=== PATIENT | female | born 1935 | race Hispanic/Latino ===

== ENCOUNTER → 2019-05-11 | Day surgery (SDC) | payer MEDICARE ==
[2019-05-09 10:29] LABS: BASOPHILS % 0.6 % (0.0-1.0); EOSINOPHILS # (AUTO) 0.2 (0.0-0.4); EOSINOPHILS % 3.3 % (0.0-6.0); HEMATOCRIT 30.4 % (34.2-44.1); HEMOGLOBIN 9.4 g/dL (12.0-16.0); LYMPHOCYTES # (AUTO) 1.7 (1.0-3.2); LYMPHOCYTES % 25.3 % (18.0-39.1); MEAN CORPUSCULAR HEMOGLOBIN 28.8 pg (28-32); MEAN CORPUSCULAR HGB CONC 30.9 g/dL (31-35); MEAN CORPUSCULAR VOLUME 93.3 fL (81-99); MONOCYTES # (AUTO) 0.5 (0.2-0.8); MONOCYTES % 6.7 % (4.4-11.3); NEUTROPHILS # (AUTO) 4.3 (2.1-6.9); NEUTROPHILS % 63.5 % (38.7-80.0); PLATELET COUNT 492 x10e3/uL (140-360); RED BLOOD COUNT 3.26 x10e6/uL (3.6-5.1); RED CELL DISTRIBUTION WIDTH 15.3 % (11.7-14.4)
[~2019-05-11] MED LIST: ALENDRONATE SOD70 MG PO; AMIODARONE HCL200 MG PO; FENTANYL CITRATE/PF 100MCG/2 ML INJ ONE; FUROSEMIDE40 MG PO; LEVOTHYROXINE112 MCG PO; MECLIZINE HCL12.5 MG PO; METOPROLOL PO; PROPOFOL IV EMULSION 10 MG/ML 50 ML VIAL ONE; SIMVASTATIN20 MG PO; VASOTEC5 MG PO; VITAMIN D22000 UNIT PO; WARFARIN SODIUM3 MG PO
--- OUTSIDE RECORDS SUMMARY | 2019-05-11 05:35 | XMS REPORT ---
Author Author [facility] Address Unknown Phone Unavailable Care Team Providers Care Sharepoint Administrator Name Role Phone Unavailable Unavailable Payers Payer Name Policy Type Policy Number Effective Date Expiration Date Problems This patient has no known problems. Allergies, Adverse Reactions, Alerts Allergy Name Allergy Type Status Severity Reaction(s) Onset Date Inactive Date Treating Clinician Comments No Known Allergies DA Active U 2018-03-02 00:00:00 No Known Allergies DA Active U 2010-07-08 00:00:00 Medications This patient has no known medications. Results Test Description Test Time Test Comments Text Results Atomic Results Result Comments - XR CHEST 2 V 2019-04-29 15:30:00 FAX: Javi Hamm MD [phone] [place]: St: REG FAX: Aida Card DO Name: AKASH GREENWOODELA [facility] : 1935 Age/S: 84/F [address] [place] [address] Blvd Unit #: [id number] Loc: [address] [address] Phys: Aida Card DO Acct: [id number] Dis Date: Status: REG ER PHONE #: [phone] Exam Date: 04/29/2019 1445 FAX #: [phone] Reason: evaluate questionable right sided infiltrate EXAMS: CPT CODE: [id number] XR CHEST 2 V 17328 PROCEDURE: Chest Radiograph. Clinical Indication: Pulmonary infiltrate, left lower quadrant pain. Comparison: Chest radiograph 03/02/2018. FINDINGS: The chest shows minimal bilateral interstitial infiltrate/edema most pronounced in the midlung zones and lower lobes. No consolidation. The cardiac silhouette is slightly enlarged and prosthetic cardiac valves are noted. The patient has had prior midline sternotomy. 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 IMPRESSION: 1. Minimal bilateral interstitial infiltrate/edema. SL: OCO-H Electronically S igned by Berny Milian on 04/29/2019 at 1530 Reported and signed by: Dony Milian M.D. CC: Javi Laurent MD; Aida Card DO Technologist: RT Allison(Mary) Trnsirisha Date/Time/By: 04/29/2019 (1530) : By: Rl Orig Print D/T: S: 04/29/2019 (1006) PAGE 1 Signed Report - CT ABD PELVIS W/CONT 2019-04-29 14:04:00 Name: MACKENZIE GREENWOOD [facility] : 1935 Age/S: 84 / F [address] [place] [address] Unit #: [id number] Loc: [place] [address] Phys: Aida Card DO Acct: [id number] Dis Date: Status: REG ER PHONE #: [phone] Exam Date: 04/29/2019 1332 FAX #: [phone] Reason: acute RLQ pain EXAMS: CPT CODE: [id number] CT ABD PELVIS W/CONT 69546 Procedure: CT Abdomen/Pelvis with IV Contrast. Clinical Indication: Right lower quadrant pain. Comparison: None. TECHNIQUE: Sequential trans-axial images were obtained with a multi-detector helical CT after intravenous administration of 100 cc Isovue 300 iodinated contrast. Coronal and sagittal reconstructions were obtained. No oral contrast was used for the exam. CT imaging performed at this location utilizes radiation dose optimization techniques which include one or more of the following: -Automated exposure control - Adjustment of the mA and/or kV according to patient size -Use of iterative reconstruction technique CT Radiation Dose DLP 408 mGy-cm FINDINGS: CT ABDOMEN WITH IV CONTRAST: VISUALIZED LUNG BASES: There is patchy consolidation and interstitial infiltrate most pronounced in the posterior lower lobes. The heart is enlarged and coronary artery calcifications are noted. 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 ABDOMINAL SOLID ORGANS: There is a 4 mm cyst in the left lobe of the liver. The gallbladder is somewhat contracted, limiting interpretation. The spleen, pancreas, adrenal glands and kidneys appear normal. NON-CONTRAST OPACIFIED STOMACH AND BOWEL: The noncontrast opacified stomach is grossly unremarkable. The non-contrast opacified loops of small bowel appear grossly unremarkable on CT. There are scattered colonic diverticula most pronounced in the sigmoid colon with extensive retained fecal matter throughout the colon precluding evaluation for polypoid lesions. The lack of orally administered contrast material limits complete bowel evaluation. The appendix is unremarkable. PERITONEUM AND RETROPERITONEUM: There is no abdominal lymphadenopathy. There is no pneumoperitoneum or ascites. The retroperitoneal region appears unremarkable. There is soft tissue swelling and hematoma formation involving the lower right anterior abdominal wall most pronounced in the right rectus abdominis muscle, with hematoma formation measuring up to 7 cm in diameter. PAGE 1 Signed Report (CONTINUED) Name: MACKENZIE GREENWOOD [facility] : 1935 Age/S: 84 / F [address] [place] [address] Unit #: [id number] Loc: [place] [address] Phys: Aida Card DO Acct: [id number] Dis Date: Status: REG ER PHONE #: [phone] Exam Date: 04/29/2019 1332 FAX #: [phone] Reason: acute RLQ pain EXAMS: CPT CODE: [id number] CT ABD PELVIS W/CONT 47104 <Continued> VASCULAR STRUCTURES: There is extensive calcific atherosclerosis. The portal vein appears patent. CT PELVIS WITH IV CONTRAST: PERITONEUM AND EXTRAPERITONEAL REGIONS: There is no pelvic lymphadenopathy or ascites. The inguinal regions are unremarkable. The patient has had previous hysterectomy. There is trace free fluid in the deep central pelvis. BLADDER: The bladder appears unremarkable. OSSEOUS STRUCTURES: Degenerative change and dextroscoliosis involves the thoracolumbar spine. There is grade 1 spondylolisthesis of L4 on L5. There is minimal compression deformity of the superior aspect of L2, likely old. IMPRESSION: 1. Findings consistent with soft tissue swelling and hematoma formation involving the lower right anterior abdominal wall most pronounced in the right rectus abdominis muscle. 2. Patchy consolidation and interstitial infiltrate at the lung bases. 3. Previous cardiac valve replacements. 4. Hepatic cyst. 5. Colonic diverticulosis. 6. Calcific atherosclerosis. 7. Hysterectomy with trace free fluid in the deep central pelvis. 8. Degenerative change with old compression deformity of L2. SL: OCO-H at 1404 Reported and signed by: Dony Milian M.D. PAGE 2 Signed Report (CONTINUED) Name: MACKENZIE GREENWOOD [facility] : 1935 Age/S: 84 / F [address] [place] [address] Unit #: [id number] Loc: [place] [address] Phys: Aida Card DO Acct: [id number] Dis Date: Status: REG ER PHONE #: [phone] Exam Date: 04/29/2019 1332 FAX #: [phone] Reason: acute RLQ pain EXAMS: CPT CODE: [id number] CT ABD PELVIS W/CONT 71299 <Continued> CC: Aida Card DO Technologist:RAFIQ Beavers CTDI: DLP: Trnscb Date/Time: 04/29/2019 (1403) [email or web address] Orig Print D/T: S: 04/29/2019 (1407) PAGE 3 Signed Report BASIC METABOLIC PANEL 2019-04-29 13:04:00 SODIUM (test code=NA) 136 mEq/L 134-147 POTASSIUM (test code=K) 3.5 mEq/L 3.4-5.0 CHLORIDE (test code=CL) 102 mEq/L 100-108 CARBON DIOXIDE (test code=CO2) 27 mEq/L 21-33 ANION GAP (test code=GAP) 11 0-20 GLUCOSE (test code=GLU) 109 mg/dL 70-110 BLOOD UREA NITROGEN (test code=BUN) 14 mg/dL 7-18 GLOMERULAR FILTRATION RATE (test code=GFR) 68.7 70-80 Units of measure=ml/min/1.73 m2 CREATININE (test code=CREAT) 0.8 mg/dL 0.6-1.3 CALCIUM (test code=CA) 8.4 mg/dL 8.0-10.5 HEPATIC FUNCTION [id number] 13:04:00* Test Item Value Reference Range Comments TOTAL PROTEIN (test code=PROT) 7.9 g/dL 6.4-8.2 ALBUMIN (test code=ALB) 3.10 g/dL 3.4-5.0 BILIRUBIN TOTAL (test code=BILT) 0.4 MG/DL <1.5 BILIRUBIN DIRECT (test code=BILD) 0.20 MG/DL 0.0-0.30 BILIRUBIN INDIRECT (test code=BILIND) 0.20 MG/DL SGOT/AST (test code=AST) 33 IUnit/L 15-37 SGPT/ALT (test code=ALT) 63 IUnit/L 15-65 ALKALINE PHOSPHATASE TOTAL (test code=ALKP) 63 IUnit/L 20-125 [id number] 13:04:00* Test Item Value Reference Range Comments LIPASE (test code=LIP) 166 IUnit/L 73-393 LACTIC [id number] 13:04:00* Test Item Value Reference Range Comments LACTIC ACID (test code=LACT) 1.4 mmol/L 0.4-1.9 UA RFLX MICR CULT IF [id number] 13:03:00* Test Item Value Reference Range Comments UA COLOR (test code=COLU) YELLOW YEL/STRAW UA APPEARANCE (test code=APPU) CLEAR CLEAR UA GLUCOSE DIPSTICK (test code=DGLUU) NEGATIVE NEGATIVE UA BILIRUBIN DIPSTICK (test code=BILU) NEGATIVE NEGATIVE UA KETONE DIPSTICK (test code=KETU) NEGATIVE NEGATIVE UA SPECIFIC GRAVITY (test code=SGU) 1.019 1.005-1.030 UA BLOOD DIPSTICK (test code=RODY) NEGATIVE NEGATIVE UA PH DIPSTICK (test code=ADDY) 6.0 5.0-7.0 UA PROTEIN DIPSTICK (test code=PROU) NEGATIVE NEGATIVE UA UROBILINIOGEN DIPSTICK (test code=URO) 0.2 mg/dL 0.2-1.0 UA NITRITE DIPSTICK (test code=BAILEY) NEGATIVE NEGATIVE UA LEUKOCYTE ESTERASE DIPSTICK (test code=LEUU) NEGATIVE NEGATIVE UA WBC (test code=WBCU) 0-3 WBC/HPF 0-3 UA RBC (test code=RBCU) 0-3 RBC/HPF 0-3 UA WBC NO REFLEX (test code=WBCUCL) 0-3 WBC/HPF 0-3 UA BACTERIA (test code=BACU) NONE SEEN /HPF NONE SEEN UA SQUAMOUS CELLS (test code=SQU) 0-5 /HPF NONE SEEN UA HYALINE CAST (test code=HYALU) 0-2 /LPF NONE SEEN UA MUCUS (test code=MUCU) 2+ /LPF NONE SEEN Indication for culture: Suprapubic PainSpecimen Description: CLEAN CATCH BASIC METABOLIC [id number] 12:58:00* Test Item Value Reference Range Comments SODIUM (test code=NA) 136 mEq/L 134-147 POTASSIUM (test code=K) 3.5 mEq/L 3.4-5.0 CHLORIDE (test code=CL) 102 mEq/L 100-108 CARBON DIOXIDE (test code=CO2) 27 mEq/L 21-33 ANION GAP (test code=GAP) 11 0-20 GLUCOSE (test code=GLU) 109 mg/dL 70-110 BLOOD UREA NITROGEN (test code=BUN) 14 mg/dL 7-18 GLOMERULAR FILTRATION RATE (test code=GFR) 70-80 CREATININE (test code=CREAT) mg/dL 0.6-1.3 CALCIUM (test code=CA) 8.4 mg/dL 8.0-10.5 HEPATIC FUNCTION [id number] 12:58:00* Test Item Value Reference Range Comments TOTAL PROTEIN (test code=PROT) g/dL 6.4-8.2 ALBUMIN (test code=ALB) g/dL 3.4-5.0 BILIRUBIN TOTAL (test code=BILT) MG/DL <1.5 BILIRUBIN DIRECT (test code=BILD) MG/DL 0.0-0.30 SGOT/AST (test code=AST) IUnit/L 15-37 SGPT/ALT (test code=ALT) IUnit/L 15-65 ALKALINE PHOSPHATASE TOTAL (test code=ALKP) IUnit/L 20-125 [id number] 12:58:00* Test Item Value Reference Range Comments LIPASE (test code=LIP) IUnit/L 73-393 CBC W/AUTO [id number] 12:49:00* Test Item Value Reference Range Comments WHITE BLOOD CELL (test code=WBC) 10.02 x10 3/uL 4.5-11.0 RED BLOOD CELL (test code=RBC) 3.92 x10 6/uL 3.54-5.02 HEMOGLOBIN (test code=HGB) 11.4 g/dL 11.0-15.0 HEMATOCRIT (test code=HCT) 36.7 % 33.0-45.0 MEAN CELL VOLUME (test code=MCV) 93.6 fL 81.0-99.0 MEAN CELL HGB (test code=MCH) 29.1 pg 27.0-33.0 MEAN CELL HGB CONCETRATION (test code=MCHC) 31.1 g/dL 33.0-37.0 RED CELL DISTRIBUTION WIDTH CV (test code=RDW) 14.3 % 11.5-14.5 RED CELL DISTRIBUTION WIDTH SD (test code=RDW-SD) 49.2 fL 37.0-54.0 PLATELET COUNT (test code=PLT) 420 x10 3/uL 150-400 MEAN PLATELET VOLUME (test code=MPV) 9.7 fL 7.0-9.0 NEUTROPHIL % (test code=NT%) 73.4 % 56.0-77.0 IMMATURE GRANULOCYTE % (test code=IG%) 0.9 % 0.0-2.0 LYMPHOCYTE % (test code=LY%) 16.4 % 14.0-32.0 MONOCYTE % (test code=MO%) 7.2 % 4.8-9.0 EOSINOPHIL % (test code=EO%) 1.7 % 0.3-3.7 BASOPHIL % (test code=BA%) 0.4 % 0.0-2.0 NUCLEATED RBC % (test code=NRBC%) 0.0 % 0-0 NEUTROPHIL # (test code=NT#) 7.36 x10 3/uL 2.0-7.6 IMMATURE GRANULOCYTE # (test code=IG#) 0.09 x10 3/uL 0.00-0.03 LYMPHOCYTE # (test code=LY#) 1.64 x10 3/uL 1.0-3.8 MONOCYTE # (test code=MO#) 0.72 x10 3/uL 0.1-0.8 EOSINOPHIL # (test code=EO#) 0.17 x10 3/uL 0.0-0.2 BASOPHIL # (test code=BA#) 0.04 x10 3/uL 0.0-0.2 NUCLEATED RBC # (test code=NRBC#) 0.00 x10 3/uL 0.0-0.1 MANUAL DIFF REQUIRED (test code=MDIFF) NO TROPONIN-I [id number] 12:25:00* Test Item Value Reference Range Comments TROPONIN-I RAPID (test code=TROPIRAP) 0.00 ng/mL 0.00-0.08 Performed by certified butadiene converter operator at [facility] Negative: <=0.08 Positive: >=0.09An elevated troponin value alone is not sufficient todiagnose a myocardial infarction. Rather, the patient sclinical presentation (history, physical exam) and ECGshould be used in conjunction with troponin in thediagnostic evaluation of suspected myocardial infarction. Aserial sampling protocol is recommended to facilitate the identification of temporal changes in troponin levels characteristic of CT. SCR MAMM BILATERAL JOHN CAD [id number] 09:47:27 - SCR MAMM BILATERAL JOHN CAD DIGITALBILATERAL DIGITAL SCREENING MAMMOGRAM 3D/2D WITH CAD: 10/28/2018CLINICAL: Asymptomatic. Digital breast tomosynthesis was performed in addition to routine CC and MLO views. Current mammographic images were evaluated by either a [employer] M-Vu or a [employer] ImageChecker CAD (computer aided detection system). Comparison is made to exams dated 01/26/2017 mammogram, 12/23/2015 mammogram, and 12/20/2014 mammogram - [facility]-. T here are scattered fibroglandular tissues in both breasts. There are benign vas cular calcifications in both breasts. There also is a benign calcification in t he right breast. No suspicious mass, architectural distortion, malignant type c alcification, or lymph node abnormality detected. Breast architecture is stable compared to prior exams.IMPRESSION: BENIGNThere is no mammographic evidence of malignancy. Resume annual screening mammography in one year. Wilner herron/penrad:10/28/2018 09:47:27 Attending Technologist: Victorina rivera , [facility]-FWImaging Technologist: Conchis BARNES, [facility]-FWletter sent: BIRADS 1-2 Normal Mammogram BI-RADS: 2 Tiffany fagan
[2019-05-11 06:22] LABS: INR 1.74; PROTHROMBIN TIME 21.6 seconds (11.9-14.5)
[2019-05-11 06:23] LABS: PARTIAL THROMBOPLASTIN TIME 36.3 seconds (23.8-35.5)
[2019-05-11 07:50] VITALS: BP 131/81
== END | disposition home or self-care (01) ==
LOC: OR 05:26
PROVIDERS: ATTEND Internal Medicine Gastroenterology
DX: Z09 Encounter for follow-up examination after completed treatment for conditions other than malignant neoplasm (principal); Z86.010 Personal history of colon polyps; K57.30 Diverticulosis of large intestine without perforation or abscess without bleeding; K64.0 First degree hemorrhoids; Z71.3 Dietary counseling and surveillance; I10 Essential (primary) hypertension; E66.9 Obesity, unspecified; I44.0 Atrioventricular block, first degree; Z01.810 Encounter for preprocedural cardiovascular examination; Z01.812 Encounter for preprocedural laboratory examination; Z79.01 Long term (current) use of anticoagulants; Z68.35 Body mass index [BMI] 35.0-35.9, adult
CPT/HCPCS: 36415 ×2; 45378; 85025; 85610; 85730; 93005; J2704; J3010